=== PATIENT | female | born 1980 | race Caucasian/White ===

== ENCOUNTER 2023-05-29 16:14 | Emergency (ER) | payer MEDICAID ==
[2023-05-29 16:54] LABS: BASOPHILS # (AUTO) 0.1 10^3/uL (0.0-0.1); BASOPHILS % (AUTO) 0.8 %; EOSINOPHILS # (AUTO) 0.1 10^3/uL (0.0-0.7); EOSINOPHILS % (AUTO) 0.7 %; HCT - HEMATOCRIT 28.9 % (37.0-47.0); HGB - HEMOGLOBIN 9.1 g/dL (12.0-16.0); LYMPHOCYTES # (AUTO) 1.2 10^3/uL (1.5-3.5); LYMPHOCYTES % (AUTO) 9.8 %; MEAN CORPUSCULAR HEMOGLOBIN 29.1 pg (27.0-31.0); MEAN CORPUSCULAR HGB CONC 31.5 g/dL (32.0-36.0); MEAN CORPUSCULAR VOLUME 92.3 fL (81.0-99.0); MEAN PLATELET VOLUME 10.2 fL (7.9-10.8); MONOCYTES # (AUTO) 0.4 10^3/uL (0.0-1.0); MONOCYTES % (AUTO) 3.5 %; NEUTROPHILS # (AUTO) 10.2 10^3/uL (1.5-6.6); NEUTROPHILS % (AUTO) 84.8 %; PLT - PLATELET COUNT 229 10^3/uL (130-450); RED BLOOD COUNT 3.13 10^6/uL (4.20-5.40); RED CELL DISTRIBUTION WIDTH 18.4 % (12.0-15.0)
[2023-05-29 17:10] LABS: ALBUMIN 4.9 g/dL (3.2-5.5); ALBUMIN/GLOBULIN RATIO 1.8 (1.0-2.2); BILIRUBIN,TOTAL 0.6 mg/dL (0.2-1.0); CALCIUM 9.4 mg/dL (8.5-10.3); CREATININE 1.6 mg/dL (0.6-1.3); POTASSIUM 3.7 mmol/L (3.5-4.5); TOTAL PROTEIN 7.6 g/dL (6.4-8.9)
[2023-05-29] MEDS ORDERED: SODIUM CHLORIDE 0.9% 1,000 ML IV STA (17:22)
[2023-05-29] MEDS ORDERED: HYDROmorphone 1 MG/ML CARPUJECT IVP STA ×2 (17:23→19:37)
--- NOTE | 2023-05-29 17:23 | ED Physician Documentation ---
PD HPI ABD PAIN - Stated complaint Stated Complaint: SOA/ABD PX/LOWER BACK PX/DIZZY - Chief complaint Chief Complaint: Abd Pain - History obtained from History obtained from: Patient - Additional information Additional information: 43-year-old woman who is currently undomiciled has a history of mesenteric artery aneurysm with subsequent need for what sounds like sick ectomy and small bowel resection per her description. Also history of ovarian cysts and then some sort of issue with her bowel a couple years later where she got conflicting reports and was told she needs surgery but never had surgery. Today at 1230 developed severe left lower quadrant pain radiating to the back. She has not had a bowel movement in a few days and she moves her bowels and the pain is somewhat better now but not resolved. PD PAST MEDICAL HISTORY - Past Medical History Past Medical History: Yes Cardiovascular: Arrhythmia Psych: Anxiety - Past Surgical History Past Surgical History: Yes General: Bowel surgery - Present Medications Home Medications: Ambulatory Orders Medication Instructions Recorded Confirmed Ciprofloxacin HCl [Cipro] 500 mg PO BID #14 tablet 05/29/23 Oxycodone HCl/Acetaminophen 1 - 2 each PO Q6H PRN #10 tablet 05/29/23 [Percocet 5-325 mg Tablet] metroNIDAZOLE [Flagyl] 500 mg PO TID 7 Days #21 tablet 05/29/23 polyethylene glycoL 3350(BULK) 17 gm PO DAILY PRN #1 each 05/29/23 [Miralax] - Allergies Allergies/Adverse Reactions: Allergies Allergy/AdvReac Type Severity Reaction Status Date / Time erythromycin base Allergy Anaphylaxis Verified 05/29/23 16:30 guaifenesin Allergy Anaphylaxis Verified 05/29/23 16:30 Penicillins Allergy Anaphylaxis Verified 05/29/23 16:30 - Social History Does the pt smoke?: No Smoking Status: Never smoker PD ED PE NORMAL - Vitals Vital signs reviewed: Yes - General General: Alert and oriented X 3, Other (Disheveled, poor dentition) - Cardiac Cardiac: RRR, No murmur - Respiratory Respiratory: No respiratory distress - Abdomen Abdomen: Normal bowel sounds, Soft, Other (Exquisitely tender in the left lower quadrant without surgical signs) - Neuro Neuro: Alert and oriented X 3, Normal speech Results - Vitals Vitals: Vital Signs - 24 hr 05/29/23 05/29/23 16:24 18:49 Temperature 36.2 C L Heart Rate 63 56 L Respiratory 16 18 Rate Blood Pressure 136/70 H 119/85 H O2 Saturation 98 100 Oxygen O2 Source Room air - Labs Labs: Laboratory Tests 05/29/23 05/29/23 05/29/23 16:30 16:30 16:44 WBC 12.0 H RBC 3.13 L Hgb 9.1 L Hct 28.9 L MCV 92.3 MCH 29.1 MCHC 31.5 L RDW 18.4 H Plt Count 229 MPV 10.2 Neut # (Auto) 10.2 H Lymph # (Auto) 1.2 L [place] # (Auto) 0.4 Eos # (Auto) 0.1 Baso # (Auto) 0.1 Absolute Nucleated RBC 0.00 Nucleated RBC % 0.0 Sodium Potassium Chloride Carbon Dioxide Anion Gap BUN Creatinine Estimated GFR (MDRD) Glucose Calcium Total Bilirubin AST ALT Alkaline Phosphatase Total Protein Albumin Globulin Albumin/Globulin Ratio Lipase Urine Color YELLOW Urine Clarity CLEAR Urine pH 6.0 Ur Specific [place] 1.020 Urine Protein NEGATIVE Urine Glucose (UA) NEGATIVE Urine Ketones NEGATIVE Urine Occult Blood NEGATIVE Urine Nitrite NEGATIVE Urine Bilirubin NEGATIVE Urine Urobilinogen 0.2 (NORMAL) Ur Leukocyte Esterase NEGATIVE Ur Microscopic Review NOT INDICATED Urine Culture Comments NOT INDICATED Urine HCG, Qual NEGATIVE Urine Opiates Screen NEGATIVE Ur Oxycodone Screen NEGATIVE Urine Methadone Screen NEGATIVE Ur Propoxyphene Screen NEGATIVE Ur Barbiturates Screen NEGATIVE Ur Tricyclics Screen NEGATIVE Ur Phencyclidine Scrn NEGATIVE Ur Amphetamine Screen NEGATIVE U Methamphetamines Scrn NEGATIVE U Benzodiazepines Scrn NEGATIVE Urine Cocaine Screen NEGATIVE U Cannabinoids Screen NEGATIVE 05/29/23 16:44 WBC RBC Hgb Hct MCV MCH MCHC RDW Plt Count MPV Neut # (Auto) Lymph # (Auto) [place] # (Auto) Eos # (Auto) Baso # (Auto) Absolute Nucleated RBC Nucleated RBC % Sodium 137 Potassium 3.7 Chloride 104 Carbon Dioxide 26 Anion Gap 7.0 BUN 13 Creatinine 1.6 H Estimated GFR (MDRD) 35 L Glucose 97 Calcium 9.4 Total Bilirubin 0.6 AST 70 H ALT 49 Alkaline Phosphatase 36 L Total Protein 7.6 Albumin 4.9 Globulin 2.7 Albumin/Globulin Ratio 1.8 Lipase 43 Urine Color Urine Clarity Urine pH Ur Specific [place] Urine Protein Urine Glucose (UA) Urine Ketones Urine Occult Blood Urine Nitrite Urine Bilirubin Urine Urobilinogen Ur Leukocyte Esterase Ur Microscopic Review Urine Culture Comments Urine HCG, Qual Urine Opiates Screen Ur Oxycodone Screen Urine Methadone Screen Ur Propoxyphene Screen Ur Barbiturates Screen Ur Tricyclics Screen Ur Phencyclidine Scrn Ur Amphetamine Screen U Methamphetamines Scrn U Benzodiazepines Scrn Urine Cocaine Screen U Cannabinoids Screen - Rads (name of study) CT abdomen pelvis Relevant Findings:: Final report received, EMP independent interpretation of test PD Medical Decision Making - ED course ED course: 43-year-old woman who has had extensive abdominal surgeries presents with left lower quadrant pain with tenderness. Work-up in the emergency department shows modest leukocytosis of 12,000. Hemoglobin 9 of unclear acuity, normal indices. CMP grossly normal save creatinine of 1.6 again, unclear acuity given lack of prior labs. Urinalysis and test normal. Urine drug screen negative. CT the abdomen pelvis showing colitis with large stool load and urinary bladder thickening but not corroborated by positive urinalysis. She is comfortable after single dose of Dilaudid but would like it repeated prior to discharge. Comfortable going home and I will treat her with Cipro and Flagyl. Her mom is going to get her a place to stay tonight and I will also give her some laxatives. Given close return precautions. Departure - Departure Disposition: 01 Home, Self Care Clinical Impression: Colitis Anemia Qualifiers: Anemia type: unspecified type Qualified Code(s): D64.9 - Anemia, unspecified Condition: Good Record reviewed to determine appropriate education?: Yes Instructions: ED Abdominal Pain Female Non-Specific Abdominal Pain Prescriptions: Ciprofloxacin HCl [Cipro] 500 mg PO BID #14 tablet metroNIDAZOLE [Flagyl] 500 mg PO TID 7 Days #21 tablet polyethylene glycoL 3350(BULK) [Miralax] 17 gm PO DAILY PRN #1 each PRN Reason: Constipation Oxycodone HCl/Acetaminophen [Percocet 5-325 mg Tablet] 1 - 2 each PO Q6H PRN #10 tablet PRN Reason: pain Comments: I sent your prescriptions electronically to [facility] [place]. Work- up today demonstrates that you have a colitis which is the cause of your pain. Between the antibiotics and the laxatives this should get better. We did note that you were anemic, and you will need primary care follow-up for this and other issues. Local primary care physicians are listed on the attachment if you would like a local primary care physician. I am prescribing a short course of narcotic pain medication for you. These are potentially dangerous and addictive medications that should be used carefully. These medications may constipate you. Take an ocwo-fsz-gfojywh stool softener (docusate) twice daily with plenty of water while taking these medications. If you go 24 hours without a bowel movement, take jdfz-sei-vcizvcs miralax, per package instructions. Do not drink or drive while taking these medications. If you received narcotic or sedating medications while in the emergency department, do not drive for 24 hours. Store this medication in a safe, secure place and out of reach of children. It is a violation of federal law to give or sell this medication to another person or to use in a manner other than prescribed. The ED will not refill narcotic prescriptions, including prescriptions lost or stolen. To dispose of unwanted medications: 1. [facility] a [facility] box for medication in pill form only (no liquids) 8:00 am to 4:30 p.m. Thursday-Thursday in the lobby of the [facility], [address] [place] [address]. Empty pills into ziplock bag before disposal. Call [phone] for information. 2.[employer] is a free service available to all [facility] residents. Go to [email or web address] Note that many narcotic pain relievers also contain Tylenol/acetaminophen. Please ensure that your total dose of acetaminophen from all sources does not exceed 3 g (3000 mg) per day. Forms: PCP List
[2023-05-29 17:51] LABS: MUDS CUTOFF CONCENTRATIONS CUTOFF CONC BELOW:
[2023-05-29 17:55] LABS: BILIRUBIN,URINE NEGATIVE (NEGATIVE); GLUCOSE, URINE (UA) NEGATIVE (NEGATIVE); KETONES,URINE (UA) NEGATIVE (NEGATIVE); LEUKOCYTE ESTERASE, URINE NEGATIVE (NEGATIVE); NITRITE,URINE NEGATIVE (NEGATIVE); OCCULT BLOOD,URINE NEGATIVE (NEGATIVE); PROTEIN,URINE NEGATIVE (NEGATIVE); UROBILINOGEN,URINE 0.2 (NORMAL) E.U./dL (NORMAL)
[2023-05-29 17:57] LABS: CLARITY,URINE CLEAR (CLEAR); HCG UR QUAL NEGATIVE
[2023-05-29 18:06] LABS: AMPHETAMINE SCREEN,URINE NEGATIVE (NEGATIVE); BARBITURATE SCREEN,UR NEGATIVE (NEGATIVE); BENZODIAZEPINES SCREEN, URINE NEGATIVE (NEGATIVE); COCAINE SCREEN URINE NEGATIVE (NEGATIVE); METHADONE SCREEN, URINE NEGATIVE (NEGATIVE); METHAMPHETAMINES SCREEN, URINE NEGATIVE (NEGATIVE); OPIATE SCREEN, URINE NEGATIVE (NEGATIVE); OXYCODONE SCREEN, URINE NEGATIVE (NEGATIVE); PROPOXYPHENE SCREEN, URINE NEGATIVE (NEGATIVE); THC CANNABINOID SCREEN, URINE NEGATIVE (NEGATIVE); TRICYCLIC ANTIDEPRESSANT,URINE NEGATIVE (NEGATIVE)
[2023-05-29] MEDS ORDERED: iohexoL-300 100 ML VIAL IVP ONE (18:41)
[2023-05-29 18:51] VITALS: O2SAT 100
--- NOTE | 2023-05-29 19:13 | CT Report ---
PROCEDURE: ABDOMEN/PELVIS W INDICATIONS: IV only llq pain CONTRAST: 100ml omni 300 TECHNIQUE: After the administration of intravenous contrast, 5 mm thick sections acquired from the diaphragms to the symphysis. 5 mm thick coronal and sagittal reformats were acquired. For radiation dose reducti on, the following was used: automated exposure control, adjustment of mA and/or kV according to kalyani ent size. COMPARISON: None. FINDINGS: Image quality: Excellent. Lung bases and heart: Bibasilar atelectasis. Heart size is normal. Liver: No solid mass. Gallbladder and biliary tree: No radiopaque stones or wall thickening. No biliary dilation. Spleen: No splenomegaly. Pancreas: No pancreatic ductal dilation. Adrenals: No adrenal nodule. Kidneys and ureters: No hydronephrosis. No renal cystic lesion which requires follow up. No solid mas s. Bowel and peritoneum: There is moderate circumferential wall thickening and pericolic inflammatory st randing as well as mesenteric inflammation involving the cecum, ascending colon, terminal ileum, desc ending colon, sigmoid colon, and rectum. Associated reactive free fluid in the pelvis. No organized f luid collection seen. No free air. Multiple loops of fluid-filled small bowel. Moderate fecal burden seen throughout the colon. No evidence for small bowel obstruction. Lymph nodes: No central or retroperitoneal adenopathy. Vessels: No infrarenal aortic aneurysm. PELVIS Reproductive organs: Unremarkable. Bladder: There is mild circumferential urinary bladder wall thickening slightly more pronounced than expected for degree of distention. Pelvic lymph nodes: No pelvic adenopathy by size criteria. Bones: No aggressive osseous abnormality. Other: No significant ventral or inguinal hernia. IMPRESSION: 1. Findings compatible with colitis either infectious or inflammatory in etiology. Associated reactiv e pelvic free fluid. 2. Mild urinary bladder wall thickening which may be reactive in etiology versus possible concurrent cystitis. Recommend clinical and laboratory correlation. Reviewed by: Don Waterman MD on 05/29/2023 7:12 PM PDT Approved by: Don Waterman MD on 05/29/2023 7:12 PM PDT Station ID: [id number]
[2023-05-29] MEDS ORDERED: oxyCODONE/ACET 5/325 Prepack 4 PO STA (19:37)
[2023-05-29] MEDS ORDERED: CIPROFLOXACIN 250 MG TABLET PO STA (19:37)
[2023-05-29] MEDS ORDERED: metroNIDAZOLE 250 MG TABLET PO STA (19:37)
[2023-05-29] MEDS ORDERED: polyethylene glycoL 3350 17 GM PACKET PO STA (19:37)
[2023-05-29 20:12] VITALS: BP 121/89
== END 2023-05-29 20:05 | disposition home or self-care (01) ==
LOC: ED 16:14
DX: K52.9 Noninfective gastroenteritis and colitis, unspecified (principal); D64.9 Anemia, unspecified; Z59.00 Homelessness unspecified
CPT/HCPCS: 36415; 74177; 80053; 80306; 81003; 81025; 83690; 85025; 96361; 96374; 96376; 99284; A9270; J1170; Q9967; 81001; 87086

== ENCOUNTER 2023-06-16 08:00 | Outpatient (CLI) | payer MEDICAID | END 2023-06-16 08:01 | disposition critical access hospital (66) | LOC: EMS 08:00 | DX: R53.1 Weakness (principal); R13.10 Dysphagia, unspecified; R60.0 Localized edema; M54.50 Low back pain, unspecified; Z59.01 Sheltered homelessness | CPT/HCPCS: A0425; A0429; A0999 ==

== ENCOUNTER 2023-07-03 13:13 | Outpatient (CLI) | payer MEDICAID ==
--- NOTE | 2023-07-03 15:31 | XRAY Report ---
PROCEDURE: Cervical Spine 2 View INDICATIONS: CHRONIC NECK PAIN, CHRONIC LOW BACK PPAIN TECHNIQUE: 3 view(s) of the cervical spine were acquired. COMPARISON: None. FINDINGS: Bones: Vertebral body heights are well-maintained. There is straightening of normal cervical lordosis . Overall mild degenerative changes, however there is moderate focal disc space height loss and endpl ate degenerative changes at C5-C6. No traumatic subluxation. C1 on C2 alignment is maintained on the odontoid view. Soft tissues: Prevertebral tissues with normal thickness. IMPRESSION: Degenerative changes focally involve C5-C6. No acute radiographic abnormality. If there is high juan josé rn for further derangement, consider MRI evaluation. Reviewed by: Homero Gore MD on 07/03/2023 3:30 PM PST Approved by: Homero Gore MD on 07/03/2023 3:30 PM PST Station ID: [id number]
--- NOTE | 2023-07-03 15:33 | XRAY Report ---
PROCEDURE: Thoracic Spine 3 View INDICATIONS: CHRONIC NECK PAIN, CHRONIC LOW BACK PAIN TECHNIQUE: 3 views of the thoracic spine were acquired. COMPARISON: None. FINDINGS: Bones: Vertebral body heights are well-maintained. There is minimal overall degenerative changes. No traumatic subluxation. Soft tissues: Small densities are seen at the left hilum, with peripheral suspected scarring. No susp icious calcifications elsewhere. IMPRESSION: No acute radiographic abnormality in the spine. There are minimal degenerative changes. If there is h igh concern for further derangement, consider MRI evaluation. . Small densities and suspected scarring is seen in the left hilum and midlung. Correlate with history and any prior imaging. If clinically indeterminate, consider surveillance imaging. Reviewed by: Homero Gore MD on 07/03/2023 3:32 PM PST Approved by: Homero Gore MD on 07/03/2023 3:32 PM [facility] Station ID: [id number]
--- NOTE | 2023-07-03 15:34 | XRAY Report ---
PROCEDURE: Lumbar Spine 2 View INDICATIONS: CHRONIC NECK PAIN, CHRONIC LOW BACK PAIN TECHNIQUE: 3 views of the lumbar spine were acquired. COMPARISON: None. FINDINGS: Bones: Mild disc space height loss at L5-S1 and facet arthropathy. Vertebral body heights are well-ma intained. No traumatic subluxation. Soft tissues: No suspicious calcifications. IMPRESSION: No acute radiographic abnormality. Mild disc space height loss at L5-S1 with facet arthropathy. If th ere is high concern for further derangement, consider MRI evaluation. Reviewed by: oHmero Gore MD on 07/03/2023 3:33 PM PST Approved by: Homero Gore MD on 07/03/2023 3:33 PM PST Station ID: [id number]
== END 2023-07-03 13:14 | disposition home or self-care (01) ==
LOC: DI 13:13
PROVIDERS: ATTEND Family Medicine
DX: M51.37 Other intervertebral disc degeneration, lumbosacral region (principal); M47.817 Spondylosis without myelopathy or radiculopathy, lumbosacral region; M47.814 Spondylosis without myelopathy or radiculopathy, thoracic region; R91.8 Other nonspecific abnormal finding of lung field; M47.812 Spondylosis without myelopathy or radiculopathy, cervical region

== ENCOUNTER 2023-08-05 13:24 | Outpatient (CLI) | payer MEDICAID ==
--- NOTE | 2023-08-06 11:51 | XRAY Report ---
PROCEDURE: Hand 3 View RT INDICATIONS: RIGHT HAND STRAIN TECHNIQUE: 3 views of the hand(s) acquired. COMPARISON: None. FINDINGS: Bones: No fractures or dislocations. No suspicious bony lesions. Soft tissues: No suspicious soft tissue calcifications or masses. IMPRESSION: No acute bony abnormality. If clinical symptoms persist, consider a repeat examination 7-10 days. Reviewed by: Teena Arenas MD on 08/06/2023 11:49 AM [facility] Approved by: Teena Arenas MD on 08/06/2023 11:49 AM [facility] Station ID: [id number]
== END 2023-08-05 13:25 | disposition home or self-care (01) ==
LOC: DI 13:24
PROVIDERS: ATTEND Family Medicine
DX: S66.911A Strain of unspecified muscle, fascia and tendon at wrist and hand level, right hand, initial encounter (principal)

== ENCOUNTER 2023-10-20 16:39 | Emergency (ER) | payer MEDICAID ==
[2023-10-20 17:37] VITALS: BP 122/85; O2SAT 100
--- NOTE | 2023-10-20 18:07 | ED Physician Documentation ---
PD HPI BACK PAIN - Stated complaint Stated Complaint: BACK PX/SOA - Chief complaint Chief Complaint: Back Pain - History obtained from History obtained from: Patient - Additional information Additional information: HAS CHRONIC RECURRENT BACK PAIN AND HX OF CRPS R HAND BACK PAIN FLARED TODAY WITHOUT TRIGGER, BOTH SIDES OF LUMBAR SPINE. WORSE WITH POSITION CHGS AND SITTING. TYLENOL/MOTRIN WITHOUT RELIEF. NO URINARY INCONTINENCE. NO POSS PREG NO SADDLE ANESTHESIA NO FEVER. 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 : None HEENT: None Psych: Anxiety Musculoskeletal: Chronic back pain Derm: None - Past Surgical History Past Surgical History: Yes General: Bowel surgery - Present Medications Home Medications: Ambulatory Orders Medication Instructions Recorded Confirmed HYDROcod/ACETAM 5/325 [[place] 5/325] 1 - 2 tab PO Q6H PRN #15 tablet 10/20/23 - Allergies Allergies/Adverse Reactions: Allergies Allergy/AdvReac Type Severity Reaction Status Date / Time erythromycin base Allergy Anaphylaxis Verified 10/20/23 17:29 guaifenesin Allergy Anaphylaxis Verified 10/20/23 17:29 Penicillins Allergy Anaphylaxis Verified 10/20/23 17:29 - Social History Does the pt smoke?: Yes Smoking Status: Current every day smoker Does the pt drink ETOH?: Yes Does the pt have substance abuse?: Yes - Immunizations Immunizations are current?: Yes PD ED PE NORMAL - Vitals Vital signs reviewed: Yes - General General: Alert and oriented X 3, Other (COMFORTABLE AT REST, WINCES WITH POSITION CHG) - Abdomen Abdomen: Soft, Non tender - Back Back: Other (TTP BOTH PARALUMBAR MSKS AREA) - Extremities Extremities: Other (The patient has equal and normal Achilles and patellar reflexes bilaterally. Normal sensation in all areas of the legs. Patient denies saddle anesthesia. Normal strength in flexion-extension at the ankles, knees, and flexion of the hips.) - Neuro Neuro: Alert and oriented X 3 Results - Vitals Vitals: Vital Signs - 24 hr 10/20/23 17:30 Temperature 36.4 C L Heart Rate 61 Respiratory 18 Rate Blood Pressure 122/85 H O2 Saturation 100 Oxygen O2 Source Room air PD Medical Decision Making - ED course ED course: This patient has seemingly uncomplicated musculoskeletal back pain. The patient has no "red flags." Specifically denies IV drug use, fevers, incontinence, saddle anesthesia. Spinal epidural abscess was considered, given that the patient has no fever, is not diabetic, has no spinal tenderness, does not use IV drugs, and has no bilateral neurologic symptoms, the diagnosis of spinal epidural abscess is considered exceedingly unlikely. Departure - Departure Disposition: Home, Self Care Clinical Impression: Back pain Condition: Good Record reviewed to determine appropriate education?: Yes Instructions: ED Low Back Pain Injury Prescriptions: HYDROcod/ACETAM 5/325 [[place] 5/325] 1 - 2 tab PO Q6H PRN #15 tablet PRN Reason: Pain Comments: I SENT YOUR PRESCRIPTION TO [facility] IN [place] FOLLOWUP WITH YOUR PCP, CONSIDER PHYSICAL THERAPY. DO NOT DRINK OR DRIVE HY HYDROCODONE. Forms: PCP List Discharge Date/Time: 10/20/23 18:35
[2023-10-20] MEDS: HYDROmorphone 1 MG/ML CARPUJECT IM STA (18:25)
== END 2023-10-20 18:35 | disposition home or self-care (01) ==
LOC: ED 16:39
DX: M54.9 Dorsalgia, unspecified (principal); I49.9 Cardiac arrhythmia, unspecified; F17.200 Nicotine dependence, unspecified, uncomplicated
CPT/HCPCS: 96372; 99283; J1170

== ENCOUNTER 2024-02-08 12:16 | Emergency (ER) | payer MEDICAID ==
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
[2024-02-08] MEDS: HYDROmorphone 1 MG/ML CARPUJECT IM STA (13:42)
[2024-02-08 13:54] VITALS: BP 120/88; O2SAT 99
== END 2024-02-08 13:48 | disposition home or self-care (01) ==
LOC: ED 12:16
DX: M54.50 Low back pain, unspecified (principal); G89.29 Other chronic pain; F17.200 Nicotine dependence, unspecified, uncomplicated
CPT/HCPCS: 96372; 99283; 99284; J1170

== ENCOUNTER 2024-02-22 10:52 | Emergency (ER) | payer MEDICAID ==
[2024-02-22 11:15] VITALS: O2SAT 100
--- NOTE | 2024-02-22 12:46 | ED Physician Documentation ---
PD HPI BACK PAIN - Stated complaint Stated Complaint: LOWER BACK PX - Chief complaint Chief Complaint: Back Pain - History obtained from History obtained from: Patient - History of Present Illness Timing - onset: Chronic Timing - duration: Years Timing - details: Gradual onset Location: Lower, Right Quality: Pain, Spasm, Similar to prior episodes Associated symptoms: No: Fever, Weakness, Numbness, Incontinent of urine, Unable to urinate, Hematuria, Incontinent of stool Improves with: Rest Worsened by: Movement Contributing factors: No: Trauma, Anticoagulated, Cancer, IVDA - Additional information Additional information: Patient is a 43-year-old female who presents to the emergency department with low back pain. This is a chronic ongoing issue. She states she is out of her pain medication. She is supposed to be going back to [place]. She states she is working with her transport medic to get back there. No numbness or tingling. No loss of bowel or bladder control. Worse with movement, better with rest. Does not use IV drugs. Not anticoagulated. No trauma. 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 : None HEENT: None Psych: Anxiety Musculoskeletal: Chronic back pain Derm: None - Past Surgical History Past Surgical History: Yes General: Appendectomy, Bowel surgery Ortho: ACL reconstruction - Present Medications Home Medications: Ambulatory Orders Medication Instructions Recorded Confirmed HYDROcod/ACETAM 5/325 [[place] 5/325] 1 - 2 ea PO Q6H PRN #14 tablet 02/22/24 - Allergies Allergies/Adverse Reactions: Allergies Allergy/AdvReac Type Severity Reaction Status Date / Time erythromycin base Allergy Anaphylaxis Verified 02/22/24 11:09 guaifenesin Allergy Anaphylaxis Verified 02/22/24 11:09 Penicillins Allergy Anaphylaxis Verified 02/22/24 11:09 - Social History Does the pt smoke?: Yes Smoking Status: Current every day smoker Does the pt drink ETOH?: Yes Does the pt have substance abuse?: No - Immunizations Immunizations are current?: Yes PD ED PE NORMAL - Vitals Vital signs reviewed: Yes - General General: Alert and oriented X 3, No acute distress - HEENT HEENT: PERRL, Moist mucous membranes - Neck Neck: Supple, no meningeal sign - Cardiac Cardiac: RRR - Respiratory Respiratory: No respiratory distress, Clear bilaterally - Abdomen Abdomen: Soft, Non tender, Non distended - Back Back: No spinal TTP (No midline tenderness to palpation or percussion. No step- off or deformity. Mild paraspinal spasm bilateral lower lumbar.) - Derm Derm: Warm and dry - Extremities Extremities: No edema, No calf tenderness / cord - Neuro Neuro: Alert and oriented X 3, Other (Normal bilateral lower extremity patellar and ankle jerk reflexes. Normal great toe extension bilaterally. no saddle anesthesia) - Psych Psych: Normal mood, Normal affect Results - Vitals Vitals: Vital Signs - 24 hr 02/22/24 02/22/24 11:10 12:50 Temperature 36.6 C Heart Rate 56 L 68 Respiratory 18 18 Rate Blood Pressure 120/73 130/88 H O2 Saturation 100 100 Oxygen O2 Source Room air PD Medical Decision Making - ED course Complexity details: reviewed results, re-evaluated patient, considered differential (No cauda equina, no spinal epidural abscess, no fracture, no aortic dissection or evidence of aneursym rupture), d/w patient ED course: Patient with chronic pain in her back. No changes to her chronic back pain. No evidence of cauda equina, epidural abscess. Does not use IV drugs. No fevers. No trauma. No indication for emergent imaging. No focal neurological deficits. Will prescribe a small amount of pain medication for home and have her follow- up with her doctor for further care. Ambulating normally in the emergency department. No limp. Patient counseled regarding signs and symptoms for which I believe and urgent re-evaluation would be necessary. Patient with good understanding of and agreement to plan and is comfortable going home at this time This document was made in part using voice recognition software. While efforts are made to proofread this document, sound alike and grammatical errors may occur. Departure - Departure Disposition: 01 Home, Self Care Clinical Impression: Back pain Qualifiers: Back pain location: low back pain Chronicity: acute Back pain laterality: bilateral Sciatica presence: without sciatica Qualified Code(s): M54.50 - Low back pain, unspecified Condition: Good Instructions: ED Neck Back Pain General Follow-Up: your,doctor in 1 week [Other] Prescriptions: HYDROcod/ACETAM 5/325 [[place] 5/325] 1 - 2 ea PO Q6H PRN #14 tablet PRN Reason: Pain Comments: As we discussed, you will need to obtain all further pain medications from your primary care doctor. Please follow-up with your doctor for further care. Your prescription was sent to [facility] in [place]. I am prescribing a short course of narcotic pain medication for you. These are potentially dangerous and addictive medications that should be used carefully. These medications may constipate you. Take an juvj-adk-kuxdbug stool softener (docusate) twice daily with plenty of water while taking these medications. If you go 24 hours without a bowel movement, take jeyl-mgy-ucooevj miralax, per package instructions. Do not drink or drive while taking these medications. If you received narcotic or sedating medications while in the emergency dep artment, do not drive for 24 hours. Store this medication in a safe, secure place and out of reach of children. It is a violation of federal law to give or sell this medication to another person or to use in a manner other than prescribed. The ED will not refill narcotic prescriptions, including prescriptions lost or stolen. To dispose of unwanted medications: 1. [facility] at [address] in [place] has a medication drop box. They accept prescription medications (in pill form) Thursday through Thursday 9:00 a.m. to 5:00 p.m. 2. The [facility] [employer] accepts prescription medications (in pill form only) for disposal year round. Call for more information. 3. Contact the [facility] for the next [facility] sponsored prescription drug collection event. , [phone], or [phone]; Discharge Date/Time: 02/22/24 12:50
[2024-02-22] MEDS: HYDROcod/ACETAM 5/325 MG TABLET PO STA (12:48)
[2024-02-22 12:56] VITALS: BP 130/88
== END 2024-02-22 12:50 | disposition home or self-care (01) ==
LOC: ED 10:52
DX: M54.50 Low back pain, unspecified (principal); F17.200 Nicotine dependence, unspecified, uncomplicated
CPT/HCPCS: 99283; A9270

== ENCOUNTER 2024-03-11 15:10 | Emergency (ER) | payer MEDICAID ==
--- NOTE | 2024-03-11 16:19 | XRAY Report ---
PROCEDURE: Chest 1V INDICATIONS: shoulder pain TECHNIQUE: One view of the chest was acquired. COMPARISON: None. FINDINGS: Surgical changes and devices: Shrapnel is noted overlying the left hemithorax. Lungs and pleura: No pleural effusions or pneumothorax. Lungs are clear. Mediastinum: Mediastinal contours appear normal. Heart size is normal. Bones and chest wall: No suspicious bony lesions. Overlying soft tissues appear unremarkable. IMPRESSION: No acute cardiopulmonary process. Reviewed by: Susie Espinosa MD on 03/11/2024 4:18 PM PDT Approved by: Susie Espinosa MD on 03/11/2024 4:18 PM PDT Station ID: [id number]
--- NOTE | 2024-03-11 16:20 | XRAY Report ---
PROCEDURE: Shoulder 2+V RT INDICATIONS: pain TECHNIQUE: 3 views of the shoulder were acquired. COMPARISON: None. FINDINGS: Bones: No fractures or dislocations. No suspicious bony lesions. Visualized ribs appear intact. Soft tissues: No suspicious soft tissue calcifications. The visualized lungs are within normal limi ts. IMPRESSION: No acute bony abnormality. Reviewed by: Susie Espinosa MD on 03/11/2024 4:18 PM PDT Approved by: Susie Espinosa MD on 03/11/2024 4:18 PM PDT Station ID: [id number]
--- NOTE | 2024-03-11 17:07 | ED Physician Documentation ---
History of Present Illness - Stated complaint Stated Complaint: UPPER CHEST/SHOULDER PX - Chief complaint Chief Complaint: Trauma Ch/Bk - History obtained from History obtained from: Patient - History of Present Illness Timing: Prior to arrival - Additonal information Additional information: Patient is a 44-year-old female presenting to the emergency department with right shoulder pain and chest pain symptoms started yesterday after she tripped and fell. She reports persistent pain to her right shoulder and heard a few pops at home while she was using it. She notes she tripped over a sleeping mat and landed on her outstretched arm. She denies any swelling or bruising to the area. She did not hit her head she did not lose consciousness. She is not ta rosey anything for the pain. PD PAST MEDICAL HISTORY - Past Medical History Past Medical History: Yes Cardiovascular: Arrhythmia Respiratory: Other Neuro: None, Headaches Endocrine/Autoimmune: None GI: Other QUALITY LEAD: None : None HEENT: None Psych: Anxiety Musculoskeletal: Chronic back pain Derm: None - Past Surgical History Past Surgical History: Yes General: Appendectomy, Bowel surgery Ortho: ACL reconstruction - Present Medications Home Medications: Ambulatory Orders Medication Instructions Recorded Confirmed HYDROcod/ACETAM 5/325 [[place] 5/325] 1 - 2 ea PO Q6H PRN #14 tablet 02/22/24 - Allergies Allergies/Adverse Reactions: Allergies Allergy/AdvReac Type Severity Reaction Status Date / Time erythromycin base Allergy Anaphylaxis Verified 03/11/24 15:28 guaifenesin Allergy Anaphylaxis Verified 03/11/24 15:28 Penicillins Allergy Anaphylaxis Verified 03/11/24 15:28 - Social History Does the pt smoke?: Yes Smoking Status: Current every day smoker Does the pt drink ETOH?: Yes Does the pt have substance abuse?: No - Immunizations Immunizations are current?: Yes - POLST Patient has POLST: No PD ED PE NORMAL - Vitals Vital signs reviewed: Yes - General General: Alert and oriented X 3 - HEENT HEENT: Atraumatic - Neck Neck: Supple, no meningeal sign - Cardiac Cardiac: RRR, No murmur, No gallop, No rub, Strong equal pulses - Respiratory Respiratory: No respiratory distress, Clear bilaterally - Abdomen Abdomen: Normal bowel sounds - Extremities Extremities: No deformity, Normal ROM s pain, Other (Reproducible anterior right shoulder tenderness on examination no obvious step-off no pain on palpation of right anterior clavicle. Additionally reproducible pain to anterior right chest along the sternum. No obvious step-off no crepitus. 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 2-12 intact Results - Vitals Vitals: Vital Signs - 24 hr 03/11/24 15:23 Temperature 36.6 C Heart Rate 69 Respiratory 20 Rate Blood Pressure 95/68 O2 Saturation 100 Oxygen O2 Source Room air - Rads (name of study) right shoulder Relevant Findings:: EMP independent interpretation of test chest X-ray Relevant Findings:: EMP independent interpretation of test (No acute cardio pulmonary process noted) PD Medical Decision Making - ED course Complexity details: reviewed old records, reviewed results, d/w patient ED course: Patient is a 44-year-old female presenting to the emergency department with anterior chest pain and right shoulder pain symptoms started after she tripped yesterday she did not take anything for symptoms notes persistence of pain today. Vitals are stable on arrival. Physical exam shows reproducible anterior chest pain and right shoulder pain no obvious step-off no crepitus clear breath sounds on auscultation. Pulses intact distally bilaterally. 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 No obvious swelling bruising or deformity noted on exam however given patient's symptoms x-ray of right shoulder and chest were obtained. No obvious fracture or dislocation to right shoulder additionally chest x-ray shows no acute cardiopulmonary process no obvious injury to clavicle or ribs. Updated patient she is resting comfortably in the room will give lidocaine patch before discharge and patient is agreeable for discharge home. Departure - Departure Disposition: 01 Home, Self Care Condition: Good Comments: Ice elevate and rest right shoulder watch for any worsening pain swelling shortness of breath or any other new or worsening symptoms. Forms: PCP List
[2024-03-11] MEDS: LIDOCAINE PATCH 5% TOP STA (19:21)
[2024-03-11 19:35] VITALS: BP 122/68; O2SAT 98
== END 2024-03-11 19:26 | disposition home or self-care (01) ==
LOC: ED 15:10
DX: M25.511 Pain in right shoulder (principal); W01.0XXA Fall on same level from slipping, tripping and stumbling without subsequent striking against object, initial encounter; F17.200 Nicotine dependence, unspecified, uncomplicated
CPT/HCPCS: 71045; 73030; 99283; 99284; A9270